=== PATIENT | male | born 1950 | race Caucasian/White ===

== ENCOUNTER 2021-07-20 10:25 | Inpatient (IN) ==
[2021-07-20 10:57] LABS: Basophils # (auto) 0.02 K/uL (0-0.2); Basophils % (auto) 0.1 %; Eosinophils # (auto) 0.02 K/uL (0-0.5); Eosinophils % (auto) 0.1 %; Hematocrit (blood only) 41.5 % (42-52); Hemoglobin 13.5 g/dL (14.0-18.0); Immature Granulocytes # (auto) 0.02 K/uL (0.00-0.02); Immature Granulocytes % (auto) 0.1 %; Lymphocytes # (auto) 0.55 K/uL (1.2-3.4); Lymphocytes % (auto) 3.8 %; Mean Corpuscular Hemoglobin 32.1 pg (25-34); Mean Corpuscular Hgb Conc 32.5 g/dL (32-36); Mean Corpuscular Volume 98.8 fL (80-100); Mean Platelet Volume 11.1 fL (7.4-10.4); Monocytes # (auto) 0.68 K/uL (0.11-0.59); Monocytes % (auto) 4.7 %; Neutrophils # (auto) 13.13 K/uL (1.4-6.5); Neutrophils % (auto) 91.2 %; Platelet Count 274 K/uL (130-400); RDW Coefficient of Variation 14.2 % (11.5-14.5); White Blood Count 14.42 K/uL (4.8-10.8)
[2021-07-20] MEDS ORDERED: ALBUT/IPRATROP 3MG/0.5MG NEB 3 ML VIAL NEB STA (11:02)
[2021-07-20] MEDS ORDERED: methylPREDNISolone 125 MG/2 ML VIAL IV STA (11:02)
[2021-07-20 11:04] LABS: Appearance Urine Clear (Clear); Bacteria Urine Automated Negative (Negative); Bilirubin Urine Negative (Negative); Blood Urine Negative (Negative); Color Urine Yellow; Glucose Urine UA Negative (Negative); Ketones Urine Trace (Negative); Leukocyte Esterase Urine Negative (Negative); Nitrite Urine Negative (Negative); Protein Urine Trace (Negative); RBC Urine Automated 0-4 /hpf (0-4); Specific Gravity Urine 1.019 (1.000-1.030); Urobilinogen Urine Negative (Negative); pH Urine 5.5 (4.5-7.5)
[2021-07-20] MEDS ORDERED: ALBUT/IPRATROP 3MG/0.5MG NEB 3 ML VIAL NEB ONE (11:14)
[2021-07-20 11:43] LABS: Alanine Aminotransferase 25 (12-78); Albumin Level 3.5 gm/dl (3.4-5.0); Aspartate Aminotransferase 14 U/L (15-37); Blood Urea Nitrogen 18 mg/dl (7-18); Calcium 9.3 mg/dl (8.5-10.1); Carbon Dioxide 29 mmol/L (21-32); Chloride 101 mmol/L (98-107); Creatinine Clr Calc Pharmacy 72.5 ml/min; Est GFR (African American) 66.2 ml/min; Est GFR (Non-African American) 57.1 ml/min; Glucose 139 mg/dl (70-99); NT Pro B Type Natriuretic Pept 542 pg/ml (0-900); Potassium 4.1 mmol/L (3.5-5.1); Sodium 139 mmol/L (136-145); Troponin I < 0.015 ng/ml (0-0.045)
[2021-07-20 11:46] LABS: Albumin Globulin Ratio 0.8 (0.9-2); Alkaline Phosphatase 129 U/L (45-117); Bilirubin,Total 0.7 mg/dl (0.2-1); Globulin 4.4 gm/dl (2.5-4.0); Total Protein 7.9 gm/dl (6.4-8.2)
[2021-07-20 12:00] LABS: D Dimer 880 ug/L FEU (0-500)
[2021-07-20] MEDS ORDERED: OPTIRAY 320 125ml IV ONE (12:29)
--- NOTE | 2021-07-20 12:55 | CT Scan Report ---
CT ANGIOGRAPHY OF THE CHEST, PULMONARY EMBOLUS PROTOCOL CLINICAL HISTORY: hypoxia, shortness of breath. COMPARISON STUDY: No previous studies for comparison. TECHNIQUE: Following IV administration of 120 mL of Optiray, helical axial images of the chest were o btained utilizing the pulmonary embolus protocol. Maximal intensity projections and sagittal and cor onal reformats were viewed on an independent 3D workstation. IV contrast was administered without co mplication. Automated exposure control was utilized for the study. A dose lowering technique was ut ilized adhering to the principles of ALARA. CT DOSE: 947.24 mGy.cm FINDINGS: No central pulmonary emboli are identified. The remainder of the pulmonary arteries are quintana boptimally assessed due to respiratory motion artifact. Mild cardiomegaly is noted. There is no peric ardial effusion. No thoracic aortic dissection is noted. There is moderate coronary artery calcificat ion. Note is made of a few mildly enlarged right cardiophrenic angle lymph nodes. Index node measures 1.3 x 1.3 cm. There is no pneumothorax. Trace right pleural effusion is present. Suspected underlyin g emphysema is present. There are secretions within the right mainstem bronchus. Lungs are suboptimal ly assessed due to respiratory motion. Right paramediastinal opacity involving the right upper lobe a nd superior segment of the right lower lobe is noted. This may reflect post radiation change. There i s a 5.6 cm focus of consolidation within the right middle lobe. Additional right lower lobe and right middle lobe airspace opacities are present. Mild subpleural opacity within the left lower lobe. Ther e is a possible 1.1 cm left lower lobe nodule on image 81 of 333. No pneumothorax is identified. No s uspicious lesions are identified within visualized portions of the bony thorax. There is a moderate c ompression fracture of T8 with 60% loss of vertebral body height centrally. There is minimal retropul mathew. This fracture is likely subacute. A 2.2 cm left adrenal nodule is noted. Gallbladder is surgica lly absent. Multiple subcentimeter hepatic lesions are suboptimally assessed on this exam but probabl y reflect cysts. A small hiatal hernia is present. IMPRESSION: 1. No central pulmonary emboli. Evaluation of the remainder of the pulmonary arteries is significantl y compromised by respiratory motion artifact. 2. Multifocal consolidation within the right middle and right lower lobes which favors pneumonia. 3. Right paramediastinal opacity involving the right upper lobe and superior segment of the right low er lobe. The appearance favors post radiation change. Pneumonia could appear similar. 4. Suspected emphysema. Several lung nodules, including a 1.1 cm left lower lobe nodule. Correlation with prior imaging studies, if available, is recommended. A follow-up chest CT in 6 months is also quintana ggested. 5. Trace right pleural effusion. 6. Several mildly enlarged right cardiophrenic angle lymph nodes which can be assessed on follow-up c hest CT. 7. Indeterminate 2.2 cm left adrenal nodule. 8. Moderate T8 compression fracture, likely subacute. ACT 112: Negative or not required by law. Electronically signed by: Neftaly Tubbs M.D. 07/20/2021 12:54 PM
--- NOTE | 2021-07-20 13:13 | XRay Report ---
XR chest 1V portable CLINICAL HISTORY: Dyspnea. COMPARISON STUDY: No previous studies for comparison. TECHNIQUE: 1 view of the chest FINDINGS: Single frontal view of the chest demonstrates the cardiomediastinal silhouette to be within normal li mits. There is asymmetric interstitial and alveolar opacity present involving the right lower lobe al shelbi with blunting of the right costophrenic angle representing a small pleural effusion. Findings are suspicious for early right lower lobe pneumonia. The left hemithorax is clear. There is no evidence for left pleural effusion. There is no evidence for vascular congestion. There is no acute osseous pa thology. IMPRESSION: Asymmetric interstitial and alveolar opacity involving the right lower lobe with small ri ght pleural effusion. The findings are suspicious for the presence of early pneumonia. Follow-up PA a nd lateral radiographs would be helpful for further evaluation. ACT 112: Negative or not required by law. Electronically signed by: Carlos Cardona M.D. 07/20/2021 1:11 PM
[2021-07-20] MEDS ORDERED: DOXYCYCLINE HYCLATE 100 MG in DEXTROSE 5% 100 ML IV STA (13:15)
[2021-07-20] MEDS ORDERED: cefTRIAXone SODIUM 2,000 MG/70 ML BAG IV STA (13:15)
[2021-07-20 13:58] LABS: Influenza A virus by PCR Negative (Negative); Influenza B virus by PCR Negative (Negative)
--- NOTE | 2021-07-20 14:03 | History & Physical Report ---
Date of Service July 20, 2021 Assessment & Plan (1) Community acquired pneumonia: Plan: Patient admitted to PCU place on ceftriaxone/ azithromycin may consider converting to cefepime or zosyn if no improvement, given previous recent short stay (about 24 hours) at hospital patient currently stable on supplemental oxygen. received methylprednisone in ER. will hold further steroids at this time. Given radiographic evidence of pneumonia and inability to compare with prior imaging; unsure if this is just the same radiographic evidence of prior pneumonia that just hasn't cleared (previous pneumonia less than 28 days ago). However given his clinical symptoms and oxygen requirements, will treat as if this is a pneumonia. Prior pneumonia was treated with 10 days of doxycycline (confirmed by calling his pharmacy) (2) Acute exacerbation of chronic obstructive airways disease: Plan: as atated above (3) Hypoxia: Plan: on oxygen (4) Carotid stenosis, left: Plan: on apixaban (5) CHF, chronic: Plan: appears to be chronic systolic CHF (6) Depression: Plan: stabke continue citalopram. History of Present Illness Chief Complaint: SOB Primary Care Provider: NO PCP This is a pleasant 70 yo male from [place]. PMH: chronic oxygen supplementation (2L at rest, 4 L walk) small cell lung cancer dx 8 years ago, COPD, stents placed in carotid arteries (6 years ago), for which he takes elqiuis, CHF, Depression. 3 weeks ago, patient was treated for community acquired pneumonia with doxycycline for 10 days.. During that time, he reports, he was hospitalized for 1 day on the day before thanksgiving: with hypokalemia dehydration. Patient reports after abx, he was back to his usual health. However for the past week, patient has been complaining of generaized malaise, productive worsening cough, worsening dyspea on exertion.Sick for a week. His dyspnea now occurs with a few steps, this prompted him to come to the hospital. Allergies Allergy/AdvReac Type Severity Reaction Status Date / Time No Known Allergies Allergy Unverified 07/20/21 13:17 Home Medications Medication Instructions Recorded Confirmed Type BuSpar 7.5 mg PO BID 07/20/21 07/20/21 History apixaban 5 mg tablet 5 mg PO BID 07/20/21 07/20/21 History aspirin 81 mg tablet,delayed 81 mg PO DAILY 07/20/21 07/20/21 History release atorvastatin 10 mg tablet 10 mg PO QPM 07/20/21 07/20/21 History bumetanide 1 mg tablet 3 mg PO QPM 07/20/21 07/20/21 History bumetanide 1 mg tablet 4 mg PO QAM 07/20/21 07/20/21 History citalopram 20 mg tablet 20 mg PO DAILY 07/20/21 07/20/21 History guaifenesin 600 mg tablet, 600 mg PO BID 07/20/21 07/20/21 History extended release 12 hr (Mucinex) potassium chloride 20 mEq 20 meq PO BID 07/20/21 07/20/21 History tablet,extended release Past Med/Surg History Social History Smoking Status: Former smoker Hx Alcohol Use: No Hx Substance Use: No Preferred Language: Czech Communication Ability: Effective [employer] Required: No Beliefs That Will Affect Care: None Current Living Situation: Spouse Feels Safe at Home: Yes Safety Concerns: Feels Safe At This Time Assistive Devices: None Review of Systems Constitutional: + fatigue; no fever Eyes: no blind spots Ear, Nose, Mouth, Throat: no ear pain and no tinnitus Respiratory: + cough, + dyspnea and + dyspnea on exertion Cardiovascular: no chest pain Gastrointestinal: no abdominal pain Genitourinary: no dysuria Musculoskeletal: no back pain Integumentary: no acne Neurologic: no gait abnormality Psychiatric: no behavioral changes Endocrine: + fatigue Hematologic / Lymphatic: no easy bleeding Allergy / Immunological: no GI upset with certain foods Physical Exam Constitutional: WD/WN, vitals as above Eyes: PERRL, conjunctivae normal, anicteric sclerae ENMT: external ear and nose normal, oropharynx normal Neck: trachea midline, no thyromegaly Respiratory: + labored breathing and + uses accessory muscles Auscultation: + diminished lung sounds and + wheezes (LOWER LUNG ARCEO) Cardiovascular: RRR, no murmur, no edema Gastrointestinal (Abdomen): normal bowel sounds, soft, nontender, no hepatosplenomegaly Musculoskeletal: no cyanosis or clubbing, extremities motor strength 5/5 Skin: no rashes, warm and dry Neurologic: PERRL, EOMI, accommodation nl, no face palsy, no dysarthria Psychiatric: A+Ox3, euthymic affect Lymphatic: no cervical or axillary lymphadenopathy Results & Data Results & Data ([facility]) Vital Signs (Past 12 Hours) Vital Signs Temp Pulse Resp BP Pulse Ox 07/20/21 12:08 93 07/20/21 11:38 37.7 C H 07/20/21 11:16 95 07/20/21 11:13 73 L 07/20/21 11:02 92 07/20/21 10:50 92 H 39 H 152/82 H 97 PG Care Time/CCT Total # of Minutes Spent Total Time Spent with Patient: Total time spent is greater than 50% in coordination of care (as documented) at patient's floor/unit and/or counseling patient: Coding Level of Care Code 98274 Initial Inpt Care Lvl 3 Diagnoses Community acquired pneumonia J18.9 Acute exacerbation of chronic obstructive airways disease J44.1 Hypoxia R09.02 Carotid stenosis, left I65.22 CHF, chronic I50.9 Depression F32.A
--- NOTE | 2021-07-20 14:05 | Emergency Department Note ---
Impression & Plan Community acquired pneumonia, Acute exacerbation of chronic obstructive airways disease, Hypoxia ED Provider Note INFORMANT: Patient and ED PROVIDER(S): Mane Mittal MD CHIEF COMPLAINT: Shortness of breath PLAN: Disposition: Admitted Condition: Good Outpatient prescription management: none Referral: None MEDICAL DECISION MAKING: Patient presented with shortness of breath that is progressive over 1 week. He was hypoxic requiring significant oxygen support. He was given an hour-long DuoNeb as well as Solu-Medrol. Chest x-ray raised concerns for pneumonia. The patient has an elevated white blood cell count. Covid testing was performed and was negative. Patient's blood work was otherwise unremarkable except for a D- dimer that was mildly elevated. The patient underwent chest CT imaging. No obvious pulmonary emboli were seen. Findings concerning for pneumonia present. Patient was given IV doxycycline and Rocephin. Consultation was made with the hospitalist service. Patient was evaluated in the ER and admitted for further management. Triage Nursing notes reviewed and agree them. Vital Signs: reviewed and remarkable for hypoxia Differential diagnosis: Reactive airway disease, pneumonia, pneumothorax, COPD, CHF, infections, cardiac ischemia, pulmonary embolism, musculoskeletal, gastrointestinal, as well as other pathologies. Diagnostics interpreted by me: ECG: Twelve-lead ECG reveals sinus rhythm with PVCs and right bundle branch block at [address] elevation or depression. Normal axis. Cardiac Monitoring: Cardiac monitoring ordered by me: The patient was placed on continuous cardiac monitoring and observed. It revealed a normal sinus rhythm at 92 beats per minute without ectopy or evidence of dysrhythmia. Imaging studies: Chest x-ray and CT scan as above. I refer you to the EMR for further details. HPI: The patient is a 70year old male who presents to the Emergency Room with complaints of shortness of breath. This started a week agoand is worsening. The patient also notes the following associated symptoms, cough, congestion. The patient has found no relieving factors. Current pain is rated as 0/10. Patient is traveling here from [place]. He noted prior to leaving [place] he was developing respiratory symptoms. He does have a history of COPD. Former smoker. The patient states that he does use up to 4 L of nasal cannula oxygen at times. Patient is vaccinated against Covid. Pt denies LOC, headache, fevers, chills, diaphoresis, visual changes, neck pain, chest pain, nausea, vomiting, abdominal pain, back pain, melena, hematochezia, urinary symptoms, numbness, weakness, lymphadenopathy, rash, or other complaints. ROS: See above HPI for pertinent positives & negatives. A total of 10 systems reviewed and were otherwise negative. PAST MEDICAL HISTORY:COPD, see below PAST SURGICAL HISTORY:See Below, FAMILY HISTORY:See Below SOCIAL HISTORY:See Below, former smoker. . HOME MEDICATIONS:See Below ALLERGIES:See Below VITALS:See Below PHYSICAL EXAMINATION: GENERAL: Awake, alert, dyspneic-appearing, in no distress HENT: Normocephalic, atraumatic. Oropharynx unremarkable. EYES: Normal conjunctiva. Sclera non-icteric. NECK: Inspection normal. Non-tender. Supple. No nuchal rigidity. FROM. No masses. RESPIRATORY: Scattered wheezes. No rales. Increased respiratory effort. CARDIAC: Normal rate. Normal rhythm. No murmurs. No rubs. Extremities warm and well perfused. Pulses equal. No JVD. GI: Soft, non-distended. No tenderness to palpation. No rebound or guarding. No masses. RECTAL: Deferred. MUSCULOSKELETAL: Atraumatic. Chest examination reveals no tenderness. The back is symmetrical on inspection without obvious abnormality. There is no CVA tender ness to palpation. No joint edema. LOWER EXTREMITIES: Calves are equal size bilaterally and non-tender. No edema. No discoloration. NEURO: Normal sensorium. No sensory or motor deficits noted. SKIN: No rash or jaundice noted. CRITICAL CARE: I have personally spent greater than 35 minutes of critical care time in the direct management of this patient. This includes bedside care, interpretation of diagnostic studies, and testing, discussion with consultants, patient, and family members, and other required patient management activities. These minutes are in excess of all separately billable procedures. Mane Mittal MD Past Med/Surg History Social History Smoking Status: Never smoker Feels Safe at Home: Yes Allergies Allergies Allergy/AdvReac Type Severity Reaction Status Date / Time No Known Allergies Allergy Unverified 07/20/21 13:17 Home Meds Home Medications Medication Instructions Recorded Confirmed apixaban 5 mg tablet 5 mg PO BID 07/20/21 07/20/21 aspirin 81 mg tablet,delayed 81 mg PO DAILY 07/20/21 07/20/21 release atorvastatin 10 mg tablet 10 mg PO QPM 07/20/21 07/20/21 bumetanide 1 mg tablet 3 mg PO QPM 07/20/21 07/20/21 bumetanide 1 mg tablet 4 mg PO QAM 07/20/21 07/20/21 citalopram 20 mg tablet 20 mg PO DAILY 07/20/21 07/20/21 guaifenesin 600 mg tablet, 600 mg PO BID 07/20/21 07/20/21 extended release 12 hr (Mucinex) potassium chloride 20 mEq 20 meq PO BID 07/20/21 07/20/21 tablet,extended release Results & Data (ED) Vital Signs Vital Signs - 24 hr 07/20/21 10:50 07/20/21 11:02 07/20/21 11:13 Temperature Temperature Source Pulse Rate 92 H Respiratory Rate 39 H Respiratory Effort / Characteristics Labored Respiratory Depth Deep Respiratory Pattern Tachypnea Blood Pressure 152/82 H Blood Pressure Mean 105 Pulse Oximetry 97 92 73 L Oxygen Delivery Method Non-rebreather Nasal Cannula Nasal Cannula Oxygen Flow Rate 15 6 6 Sepsis Recent Fever Within 48 Hours No Sepsis New/Unexplained Change in Mental Status No Sepsis Action Taken by Nursing No Action Required 07/20/21 11:16 07/20/21 11:38 07/20/21 12:08 Temperature 37.7 C H Temperature Source Oral Pulse Rate Respiratory Rate Respiratory Effort / Characteristics Respiratory Depth Respiratory Pattern Blood Pressure Blood Pressure Mean Pulse Oximetry 95 93 Oxygen Delivery Method Non-rebreather Nasal Cannula Oxygen Flow Rate 12 8 Sepsis Recent Fever Within 48 Hours Sepsis New/Unexplained Change in Mental Status Sepsis Action Taken by Nursing Laboratory Data Result diagrams: 07/20/21 10:39 07/20/21 10:39 Lab Results 07/20/21 07/20/21 07/20/21 Range/Units 10:38 10:39 10:39 WBC 14.42 H (4.8-10.8) K/uL RBC 4.20 L (4.7-6.1) M/uL Hgb 13.5 L (14.0-18.0) g/dL Hct 41.5 L (42-52) % MCV 98.8 (80-100) fL MCH 32.1 (25-34) pg MCHC 32.5 (32-36) g/dL RDW Std Deviation 51.0 H (36.4-46.3) fL RDW Coeff of Diane 14.2 (11.5-14.5) % Plt Count 274 (130-400) K/uL MPV 11.1 H (7.4-10.4) fL Immature Gran % (Auto) 0.1 % Neut % (Auto) 91.2 % Lymph % (Auto) 3.8 % Robertson % (Auto) 4.7 % Eos % (Auto) 0.1 % Baso % (Auto) 0.1 % Neut # (Auto) 13.13 H (1.4-6.5) K/uL Lymph # (Auto) 0.55 L (1.2-3.4) K/uL Robertson # (Auto) 0.68 H (0.11-0.59) K/uL Eos # (Auto) 0.02 (0-0.5) K/uL Baso # (Auto) 0.02 (0-0.2) K/uL Immature Gran # (Auto) 0.02 (0.00-0.02) K/uL D-Dimer (0-500) ug/L FEU Sodium 139 (136-145) mmol/L Potassium 4.1 (3.5-5.1) mmol/L Chloride 101 (98-107) mmol/L Carbon Dioxide 29 (21-32) mmol/L Anion Gap 9.0 (3-11) BUN 18 (7-18) mg/dl Creatinine 1.28 (0.6-1.4) mg/dl Est Cr Clr Drug Dosing 72.5 ml/min Est GFR ( Amer) 66.2 ml/min Est GFR (Non-Af Amer) 57.1 ml/min BUN/Creatinine Ratio 14.0 (10-20) Glucose 139 H (70-99) mg/dl Calcium 9.3 (8.5-10.1) mg/dl Total Bilirubin 0.7 (0.2-1) mg/dl AST 14 L (15-37) U/L ALT 25 (12-78) Alkaline Phosphatase 129 H (45-117) U/L Troponin I < 0.015 (0-0.045) ng/ml NT-Pro-B Natriuret Pep 542 (0-900) pg/ml Total Protein 7.9 (6.4-8.2) gm/dl Albumin 3.5 (3.4-5.0) gm/dl Globulin 4.4 H (2.5-4.0) gm/dl Albumin/Globulin Ratio 0.8 L (0.9-2) Procalcitonin (0-0.5) ng/ml Urine Color Yellow Urine Appearance Clear (Clear) Urine pH 5.5 (4.5-7.5) Ur Specific Eugene 1.019 (1.000-1.030) Urine Protein Trace H (Negative) Urine Glucose (UA) Negative (Negative) Urine Ketones Trace H (Negative) Urine Blood Negative (Negative) Urine Nitrite Negative (Negative) Urine Bilirubin Negative (Negative) Urine Urobilinogen Negative (Negative) Ur Leukocyte Esterase Negative (Negative) Urine WBC (Auto) 1-5 (0-5) /hpf Urine RBC (Auto) 0-4 (0-4) /hpf U Hyaline Cast (Auto) 1-5 (0-5) /lpf U Epithel Cells (Auto) 5-10 H (0-5) /lpf Urine Bacteria (Auto) Negative (Negative) Influ A Molecular Assay (Negative) Influ B Molecular Assay (Negative) SARS-CoV-2, RNA, NAAT (NEGATIVE) 07/20/21 07/20/21 07/20/21 Range/Units 10:39 11:14 13:30 WBC (4.8-10.8) K/uL RBC (4.7-6.1) M/uL Hgb (14.0-18.0) g/dL Hct (42-52) % MCV (80-100) fL MCH (25-34) pg MCHC (32-36) g/dL RDW Std Deviation (36.4-46.3) fL RDW Coeff of Diane (11.5-14.5) % Plt Count (130-400) K/uL MPV (7.4-10.4) fL Immature Gran % (Auto) % Neut % (Auto) % Lymph % (Auto) % Robertson % (Auto) % Eos % (Auto) % Baso % (Auto) % Neut # (Auto) (1.4-6.5) K/uL Lymph # (Auto) (1.2-3.4) K/uL Robertson # (Auto) (0.11-0.59) K/uL Eos # (Auto) (0-0.5) K/uL Baso # (Auto) (0-0.2) K/uL Immature Gran # (Auto) (0.00-0.02) K/uL D-Dimer 880 H* (0-500) ug/L FEU Sodium (136-145) mmol/L Potassium (3.5-5.1) mmol/L Chloride (98-107) mmol/L Carbon Dioxide (21-32) mmol/L Anion Gap (3-11) BUN (7-18) mg/dl Creatinine (0.6-1.4) mg/dl Est Cr Clr Drug Dosing ml/min Est GFR ( Amer) ml/min Est GFR (Non-Af Amer) ml/min BUN/Creatinine Ratio (10-20) Glucose (70-99) mg/dl Calcium (8.5-10.1) mg/dl Total Bilirubin (0.2-1) mg/dl AST (15-37) U/L ALT (12-78) Alkaline Phosphatase (45-117) U/L Troponin I (0-0.045) ng/ml NT-Pro-B Natriuret Pep (0-900) pg/ml Total Protein (6.4-8.2) gm/dl Albumin (3.4-5.0) gm/dl Globulin (2.5-4.0) gm/dl Albumin/Globulin Ratio (0.9-2) Procalcitonin (0-0.5) ng/ml Urine Color Urine Appearance (Clear) Urine pH (4.5-7.5) Ur Specific Eugene (1.000-1.030) Urine Protein (Negative) Urine Glucose (UA) (Negative) Urine Ketones (Negative) Urine Blood (Negative) Urine Nitrite (Negative) Urine Bilirubin (Negative) Urine Urobilinogen (Negative) Ur Leukocyte Esterase (Negative) Urine WBC (Auto) (0-5) /hpf Urine RBC (Auto) (0-4) /hpf U Hyaline Cast (Auto) (0-5) /lpf U Epithel Cells (Auto) (0-5) /lpf Urine Bacteria (Auto) (Negative) Influ A Molecular Assay Negative (Negative) Influ B Molecular Assay Negative (Negative) SARS-CoV-2, RNA, NAAT NEGATIVE (NEGATIVE) 12/27/21 Range/Units 13:37 WBC (4.8-10.8) K/uL RBC (4.7-6.1) M/uL Hgb (14.0-18.0) g/dL Hct (42-52) % MCV (80-100) fL MCH (25-34) pg MCHC (32-36) g/dL RDW Std Deviation (36.4-46.3) fL RDW Coeff of Diane (11.5-14.5) % Plt Count (130-400) K/uL MPV (7.4-10.4) fL Immature Gran % (Auto) % Neut % (Auto) % Lymph % (Auto) % Robertson % (Auto) % Eos % (Auto) % Baso % (Auto) % Neut # (Auto) (1.4-6.5) K/uL Lymph # (Auto) (1.2-3.4) K/uL Robertson # (Auto) (0.11-0.59) K/uL Eos # (Auto) (0-0.5) K/uL Baso # (Auto) (0-0.2) K/uL Immature Gran # (Auto) (0.00-0.02) K/uL D-Dimer (0-500) ug/L FEU Sodium (136-145) mmol/L Potassium (3.5-5.1) mmol/L Chloride (98-107) mmol/L Carbon Dioxide (21-32) mmol/L Anion Gap (3-11) BUN (7-18) mg/dl Creatinine (0.6-1.4) mg/dl Est Cr Clr Drug Dosing ml/min Est GFR ( Amer) ml/min Est GFR (Non-Af Amer) ml/min BUN/Creatinine Ratio (10-20) Glucose (70-99) mg/dl Calcium (8.5-10.1) mg/dl Total Bilirubin (0.2-1) mg/dl AST (15-37) U/L ALT (12-78) Alkaline Phosphatase (45-117) U/L Troponin I (0-0.045) ng/ml NT-Pro-B Natriuret Pep (0-900) pg/ml Total Protein (6.4-8.2) gm/dl Albumin (3.4-5.0) gm/dl Globulin (2.5-4.0) gm/dl Albumin/Globulin Ratio (0.9-2) Procalcitonin 0.61 H (0-0.5) ng/ml Urine Color Urine Appearance (Clear) Urine pH (4.5-7.5) Ur Specific Eugene (1.000-1.030) Urine Protein (Negative) Urine Glucose (UA) (Negative) Urine Ketones (Negative) Urine Blood (Negative) Urine Nitrite (Negative) Urine Bilirubin (Negative) Urine Urobilinogen (Negative) Ur Leukocyte Esterase (Negative) Urine WBC (Auto) (0-5) /hpf Urine RBC (Auto) (0-4) /hpf U Hyaline Cast (Auto) (0-5) /lpf U Epithel Cells (Auto) (0-5) /lpf Urine Bacteria (Auto) (Negative) Influ A Molecular Assay (Negative) Influ B Molecular Assay (Negative) SARS-CoV-2, RNA, NAAT (NEGATIVE) Administered Medications Discontinued Medications Albuterol (Albut/Ipratrop 3mg/0.5mg Neb 3 Ml Vial) 3 ml NEB NOW STA; Protocol Stop: 07/20/21 11:03 Last Admin: 07/20/21 11:48 Dose: Not Given Documented by: [id number] Albuterol (Albut/Ipratrop 3mg/0.5mg Neb 3 Ml Vial) 12 ml NEB ONE ONE; Protocol Stop: 07/20/21 11:15 Last Admin: 07/20/21 11:33 Dose: 12 ml Documented by: [id number] Ceftriaxone Sodium (Rocephin) 2,000 mg in 70 mls @ 140 mls/hr IV NOW STA Stop: 07/20/21 13:44 Last Infusion: 07/20/21 14:00 Dose: 0 mls/hr Documented by: [id number] Admin: 07/20/21 13:25 Dose: 140 mls/hr Documented by: [id number] Doxycycline Hyclate 100 mg/ (Dextrose) 110 mls @ 50 mls/hr IV NOW STA Stop: 07/20/21 15:26 Last Admin: 07/20/21 14:44 Dose: 50 mls/hr Documented by: [id number] Ioversol (Optiray 320 125ml) 120 ml IV ONCE ONE Stop: 07/20/21 12:30 Last Admin: 07/20/21 12:31 Dose: 120 ml Documented by: [id number] Methylprednisolone (Methylprednisolone 125 Mg/2 Ml Vial) 125 mg IV NOW STA Stop: 07/20/21 11:03 Last Admin: 07/20/21 11:21 Dose: 125 mg Documented by: [id number] Imaging Data Radiologist's Impression: Chest X-Ray 07/20/21 10:50 XR chest 1V portable CLINICAL HISTORY: Dyspnea. COMPARISON STUDY: No previous studies for comparison. TECHNIQUE: 1 view of the chest FINDINGS: Single frontal view of the chest demonstrates the cardiomediastinal silhouette to be within normal limits. There is asymmetric interstitial and alveolar opacity present involving the right lower lobe along with blunting of the right costophrenic angle representing a small pleural effusion. Findings are suspicious for early right lower lobe pneumonia. The left hemithorax is clear. There is no evidence for left pleural effusion. There is no evidence for vascular congestion. There is no acute osseous pathology. IMPRESSION: Asymmetric interstitial and alveolar opacity involving the right lower lobe with small right pleural effusion. The findings are suspicious for the presence of early pneumonia. Follow-up PA and lateral radiographs would be helpful for further evaluation. ACT 112: Negative or not required by law. Electronically signed by: Carlos Cardona M.D. 07/20/2021 1:11 PM Chest CTA 07/20/21 12:01 CT ANGIOGRAPHY OF THE CHEST, PULMONARY EMBOLUS PROTOCOL CLINICAL HISTORY: hypoxia, shortness of breath. COMPARISON STUDY: No previous studies for comparison. TECHNIQUE: Following IV administration of 120 mL of Optiray, helical axial images of the chest were obtained utilizing the pulmonary embolus protocol. Maximal intensity projections and sagittal and coronal reformats were viewed on an independent 3D workstation. IV contrast was administered without complication. Automated exposure control was utilized for the study. A dose lo wering technique was utilized adhering to the principles of ALARA. CT DOSE: 947.24 mGy.cm FINDINGS: No central pulmonary emboli are identified. The remainder of the pulmonary arteries are suboptimally assessed due to respiratory motion artifact. Mild cardiomegaly is noted. There is no pericardial effusion. No thoracic aortic dissection is noted. There is moderate coronary artery calcification. Note is made of a few mildly enlarged right cardiophrenic angle lymph nodes. Index node measures 1.3 x 1.3 cm. There is no pneumothorax. Trace right pleural effusion is present. Suspected underlying emphysema is present. There are secretions within the right mainstem bronchus. Lungs are suboptimally assessed due to respiratory motion. Right paramediastinal opacity involving the right upper lobe and superior segment of the right lower lobe is noted. This may reflect post radiation change. There is a 5.6 cm focus of consolidation within the right middle lobe. Additional right lower lobe and right middle lobe airspace opacities are present. Mild subpleural opacity within the left lower lobe. There is a possible 1.1 cm left lower lobe nodule on image 81 of 333. No pneumothorax is identified. No suspicious lesions are identified within visualized portions of the bony thorax. There is a moderate compression fracture of T8 with 60% loss of vertebral body height centrally. There is minimal retropulsion. This fracture is likely subacute. A 2.2 cm left adrenal nodule is noted. Gallbladder is surgically absent. Multiple subcentimeter hepatic lesions are suboptimally assessed on this exam but probably reflect cysts. A small hiatal hernia is present. IMPRESSION: 1. No central pulmonary emboli. Evaluation of the remainder of the pulmonary arteries is significantly compromised by respiratory motion artifact. 2. Multifocal consolidation within the right middle and right lower lobes which favors pneumonia. 3. Right paramediastinal opacity involving the right upper lobe and superior segment of the right lower lobe. The appearance favors post radiation change. Pneumonia could appear similar. 4. Suspected emphysema. Several lung nodules, including a 1.1 cm left lower lobe nodule. Correlation with prior imaging studies, if available, is recommended. A follow-up chest CT in 6 months is also suggested. 5. Trace right pleural effusion. 6. Several mildly enlarged right cardiophrenic angle lymph nodes which can be assessed on follow-up chest CT. 7. Indeterminate 2.2 cm left adrenal nodule. 8. Moderate T8 compression fracture, likely subacute. ACT 112: Negative or not required by law. Electronically signed by: Neftaly Tubbs M.D. 07/20/2021 12:54 PM Discharge Plan Visit Data Chief Complaint: Shortness of Breath/Dyspnea ED Provider: Mane Mittal Discharge Problem: Community acquired pneumonia, Acute exacerbation of chronic obstructive airways disease, Hypoxia Forms Stand Alone Forms: My [facility] [employer] Prescriptions Prescriptions: No Action atorvastatin 10 mg tablet 10 mg PO QPM RF: 0 aspirin 81 mg Tablet,Delayed Release (Dr/Ec) 81 mg PO DAILY RF: 0 citalopram 20 mg Tablet 20 mg PO DAILY RF: 0 bumetanide 1 mg tablet 4 mg PO QAM RF: 0 bumetanide 1 mg tablet 3 mg PO QPM RF: 0 apixaban 5 mg Tablet 5 mg PO BID RF: 0 guaifenesin [Mucinex] 600 mg Tablet Extended Release 12hr 600 mg PO BID RF: 0 potassium chloride 20 mEq Tablet Extended Release 20 meq PO BID RF: 0 Referrals Referrals: PCP,NO [Primary Care Provider] -
[2021-07-20] MEDS ORDERED: ACETAMINOPHEN 325 MG TAB PO PRN (14:57)
--- NOTE | 2021-07-20 17:09 | XCELERA ---
[id number]
[2021-07-20] MEDS ORDERED: ATORVASTATIN 10 MG TAB PO SCH (21:00)
[2021-07-20] MEDS ORDERED: BUMETANIDE 1 MG TAB PO SCH (21:00)
[2021-07-20] MEDS: APIXABAN 5 MG TABLET PO SCH (22:04)
[2021-07-20] MEDS: guaiFENesin 600 MG TABCR PO SCH (22:05)
[2021-07-20] MEDS: POTASSIUM CHLORIDE CRTAB 20 MEQ TABCR PO SCH (22:05)
[2021-07-20] MEDS ORDERED: ALBUTEROL HFA 8 GM INHALER INH PRN (22:13)
[2021-07-21] MEDS: APIXABAN 5 MG TABLET PO SCH (08:23)
[2021-07-21] MEDS: POTASSIUM CHLORIDE CRTAB 20 MEQ TABCR PO SCH (08:23)
[2021-07-21] MEDS: guaiFENesin 600 MG TABCR PO SCH (08:23)
[2021-07-21] MEDS ORDERED: AZITHROMYCIN 250 MG TAB PO ONE (08:30)
[2021-07-21] MEDS ORDERED: AZITHROMYCIN 250 MG TAB PO SCH (09:00)
[2021-07-21] MEDS ORDERED: busPIRone 7.5 MG TAB PO SCH (09:00)
[2021-07-21] MEDS ORDERED: FLUTICASONE/VILANTEROL 100/25MCG 14 PUFFS/INHALER INH SCH (09:00)
[2021-07-21] MEDS ORDERED: CITALOPRAM 20 MG TAB PO SCH (09:00)
[2021-07-21] MEDS ORDERED: BUMETANIDE 1 MG TAB PO SCH (09:00)
[2021-07-21] MEDS ORDERED: ASPIRIN 81 MG ECTAB PO SCH (09:00)
[2021-07-21] MEDS ORDERED: cefTRIAXone SODIUM 2,000 MG in DEXTROSE 5% 50 ML IV SCH (13:00)
--- NOTE | 2021-07-21 18:25 | Discharge Summary ---
Date of Service July 21, 2021 Admission HPI Per Admitting Provider This is a pleasant 70 yo male from [place]. PMH: chronic oxygen supplementation (2L at rest, 4 L walk) small cell lung cancer dx 8 years ago, COPD, stents placed in carotid arteries (6 years ago), for which he takes elqiuis, CHF, Depression. 3 weeks ago, patient was treated for community acquired pneumonia with doxycycline for 10 days.. During that time, he reports, he was hospitalized for 1 day on the day before thanksgiving: with hypokalemia dehydration. Patient reports after abx, he was back to his usual health. However for the past week, patient has been complaining of generaized malaise, productive worsening cough, worsening dyspea on exertion.Sick for a week. His dyspnea now occurs with a few steps, this prompted him to come to the hospital. Principal Diagnosis Recurrent pneumonia Discharge Exam In general he is awake and alert pleasant no distress. HEENT normocephalic atraumatic mucous membranes moist. Lungs show right basilar rales otherwise reasonably clear no rhonchi no wheezes good effort no accessory muscle use. Neuro shows cranial nerves II through XII be grossly intact gross motor and sensory are intact. 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 Improving on Zithromax/Rocephinsafe/stable for home on Zithromax/cefdinir Has chronic hypoxic respiratory failurebut now seems to be pretty close to baseline. Has home oxygen supplies with him, overall safe/stable for discharge (2) Acute exacerbation of chronic obstructive airways disease: as atated above (3) Hypoxia: on oxygen chronically (4) Carotid stenosis, left: on apixaban (5) CHF, chronic: appears to be chronic systolic CHF, currently compensated (6) Depression: stabke continue citalopram. Stable for home Total Time Total Time Spent Total Time Spent (In Minutes): Less than 30 Discharge Plan Discharge Items Patient Disposition: Home - Self-Care Reason For Visit: ACUTE HYPOXIC RESPIRATORY FAILURE Discharge Diagnosis: Pneumonia Activity: Per Instructions section Non-emergency contact: Primary Care Provider Call non-emergency contact if: you have any medication questions and your symptoms worsen Follow-up/Referrals: PCP,NO [Primary Care Provider] - Diet: Regular Addtl Attending Provider Instructions: Pneumonia -While it is unfortunate that you had another pneumonia so close to the previous one, frequently when we have been sick with a respiratory illness our lungs become a bit of a "weakest link" and we can be a bit more susceptible for a few months into if had a chance to totally heal. It appears that is predominantly what happened here. -Fortunately, you are getting better, and the antibiotics that we have you on translate really easily to a home regimen: Azithromycin 250 mg tomorrow, , Tuesday, and Tuesday; cefdinir 300 mg twice a day for another 8 days (next dose tomorrow morning) -Your oxygen numbers were reasonable given the situationI would advise you to monitor your pulse ox, and keep your oxygen numbers at 88% to 92%. If you notice things dipping lower than 88%, sit rest and take deep breaths, if it does not quickly get above 88%, then you should seek immediate evaluation. I do not expect this to happen, however. Follow-up with your regular doctors next week for recheck/to make sure you are getting better; as far as "loose ends" I would ask that they repeat lab work (CBC, BMP) at your follow-up visit to ensure things have normalized (I suspect the abnormalities are really predominantly due to being sick with a pneumonia); and I would like them to review your CT scan/CT scan report from here as there were some findings that probably relates to your prior cancer/treatment in addition to the pneumonia we are seeing, I doubt there is anything new, but of course it is always better to be safe and have the people know you better review it. Pending Studies at Discharge: No Stand-Alone Forms: My [facility] [employer], Smoking Cessation Medications and DC Order Prescriptions: New azithromycin 250 mg Tablet 250 mg PO QAM Qty: 4 RF: 0 cefdinir 300 mg capsule 300 mg PO BID Qty: 16 RF: 0 Continued atorvastatin 10 mg tablet 10 mg PO QPM RF: 0 aspirin 81 mg Tablet,Delayed Release (Dr/Ec) 81 mg PO DAILY RF: 0 citalopram 20 mg Tablet 20 mg PO DAILY RF: 0 bumetanide 1 mg tablet 4 mg PO QAM RF: 0 bumetanide 1 mg tablet 3 mg PO QPM RF: 0 apixaban 5 mg Tablet 5 mg PO BID RF: 0 guaifenesin [Mucinex] 600 mg Tablet Extended Release 12hr 600 mg PO BID RF: 0 potassium chloride 20 mEq Tablet Extended Release 20 meq PO BID RF: 0 BuSpar 7.5 mg PO BID RF: 0 Discharge Orders: Discharge Order (Routine); Ordered 07/21/21 Ordered By: Chet Taylor Admission Data Admit Date/Time: 07/20/21 14:57 Attending Provider: Chet Taylor Admit Provider: Brenton Handley Primary Care Provider: PCP,NO Other Providers: Brenton Handley Other Interventions: Discharge Summary Assessment (RN) Last Done: 07/21/21 14:38 Coding Level of Care Code D/C DAY MANAGEMENT <30 MINS Diagnoses Community acquired pneumonia J18.9 Acute exacerbation of chronic obstructive airways disease J44.1 Hypoxia R09.02 Carotid stenosis, left I65.22 CHF, chronic I50.9 Depression F32.A
[2021-07-22] MEDS ORDERED: AZITHROMYCIN 250 MG TAB PO SCH (09:00)
--- NOTE | 2021-07-23 18:32 | Electrocardiogram Report ---
Test Reason : Blood Pressure : / mmHG Vent. Rate : 094 BPM Atrial Rate : 094 BPM P-R Int : 160 ms QRS Dur : 124 ms QT Int : 372 ms P-R-T Axes : 000 099 036 degrees QTc Int : 465 ms Poor data quality, interpretation may be adversely affected Likely atrial fibrillation Right bundle branch block Abnormal ECG No previous ECGs available Confirmed by Narayan Reeves ([id number]) on 07/23/2021 6:31:36 PM Referred By: Confirmed By:Edgardo Reeves
== END 2021-07-21 15:29 | disposition home or self-care (01) | DRG 194 ==
LOC: ED 10:25 → SUATTDRO 14:57 → EDINP 14:57 → 2S 18:30